=== PATIENT | male | born 1955 | race Caucasian/White ===

== ENCOUNTER 2016-10-14 16:26 | Inpatient (IN) ==
[2016-10-14] MEDS ORDERED: ONDANSETRON 4 MG/2 ML VIAL IV PRN (16:48)
--- NOTE | 2016-10-14 16:49 | Emergency Department Note ---
Arrival - Arrival Chief Complaint: Extremity Injury Stated Complaint: extremity complaints ED Nursing Triage Note: Brought in per EMS from [facility] with c /o left thumb injury onset 10/07/16. Accepted by Dr Toledo. Reports smashed finger on 10/07/16, then fell onto thumb on 10/11/16. After fall attempted to drill finger nail, on 10/12/16 pain became worse. Moderate edema noted to left thumb with drainage. Pain upon movement. Denies fever. Mode of Arrival: Stretcher Time Seen by Provider: 10/14/16 16:47 - History of Present Illness Allergies/Adverse Reactions: Allergies Allergy/AdvReac Type Severity Reaction Status Date / Time codeine Allergy Unknown/Unable Verified 10/14/16 16:44 to obtain Medical,Surgical,& Family Hx - Medical History Cardio: History of: Hypertension Psychological: History of: Depression Neurology: History of: Peripheral Neuropathy Endocrine: History of: Dyslipidemia Musculoskeletal: History of: Back/Neck Problems - Surgical History Orthopedic Surgeries: Surgical HX of;: Orthopedic Surgery (left wrist, leg leg) , Spinal Surgery (neck surgery, back surgery) - Social History Smoking Status: Smoker, status unknown Frequency of Alcohol Use: Frequently Type of Drug Use: None Exam Vital Signs: Vital Signs Temperature 97.8 F 10/14/16 16:26 Pulse Rate 91 H 10/14/16 16:26 Respiratory Rate 20 10/14/16 16:26 Blood Pressure 152/92 10/14/16 16:26 O2 Sat by Pulse Oximetry 98 10/14/16 16:26 Course Course Narrative: ER Doc did not see. Dr Toledo came in to see pt and will take him to surgery Disposition Clinical Impression: Injury of right thumb Case discussed with: patient Disposition: Still a Patient Condition: Stable Time of Disposition: 16:48
--- NOTE | 2016-10-14 17:07 | Orthopedic History & Physical ---
History of Present Illness Chief complaint: Left thumb infection History of present illness: Mr. King is a 61 year old male who was referred to me by Dr. Walls for evaluation of his severe left thumb infection. The patient sustained an injury last Monday where he crushed his finger between a folding table. He then injured it again Monday. Because of severe pain and swelling the patient performed a drill decompression of a subungual hematoma. 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 His thumb progressively worsened until a obviously infected finger this morning. He was seen and evaluated by Dr. Walls. The patient has an insensate left upper extremity left lower extremity secondary to spinal deformity. He is status post a 3 level fusion about 3 years ago. The patient has functional motor use of his left upper extremity. However he has a history of previous krause. To hold or automobile locator, he has to observe his left upper extremity. He has not had any fevers or chills. He also has a history of a radial fracture which was treated with a closed reduction about 40 years ago. Past medical history significant for multiple orthopedic injuries which includes to right hip dislocations, a right patella fracture, 2 left tibia and fibula fractures. He has hyperlipidemia and hypertension, depression and chronic neck and back pain. Medicine list was reviewed. Allergies to codeine 12 point review of systems otherwise negative. The patient is a 10 cigarette per day smoker and gets drunk twice a month. He is on SSI disability. 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 He lives at home with his . Alert and oriented Lungs clear to auscultation Heart regular rate and rhythm Left thumb is severely swollen with drainage underneath his eponychial fold. He has fluctuance on the dorsal surface of his thumb with erythema streaking into the dorsal aspect and slightly palmar aspect of his hand and forearm. The skin on the dorsal surface of his thumb appears tenuous. The patient can flex extend his fingers and is able to weakly flex and extend his thumb IP and MP. Radiographs from [facility] demonstrate a comminuted intra- articular fracture involving the base of his distal phalanx. He shows soft tissue swelling as well. Impression: Left thumb infection. Left intra-articular fracture base of his distal phalanx. Plan: I have advised emergent irrigation and debridement. Will initiate antibiotics after cultures are obtained. I discussed the severity of his infection and potential amputation of his thumb. He is well aware of the severity of his infection. He may require multiple other operations. Risks and benefits were discussed and all questions were answered to his satisfaction. Allergies Allergy/AdvReac Type Severity Reaction Status Date / Time codeine Allergy Unknown/Unable Verified 10/14/16 16:44 to obtain 12 point system: reviewed and no additional remarkable complaints except as stated Medical,Surgical,& Family Hx - Medical History Cardio: History of: Hypertension Psychological: History of: Depression Neurology: History of: Peripheral Neuropathy Endocrine: History of: Dyslipidemia Musculoskeletal: History of: Back/Neck Problems - Surgical History Orthopedic Surgeries: Surgical HX of;: Orthopedic Surgery (left wrist, leg leg) , Spinal Surgery (neck surgery, back surgery) - Social History Smoking Status: Smoker, status unknown Frequency of Alcohol Use: Frequently Type of Drug Use: None Exam - Constitutional Vitals: Period Temp Pulse Resp BP Sys/Burns Pulse Ox Last 24 Hr 97.8 F 91 20 152/92 98
[2016-10-14 17:20] LABS: Basophils # 0.1 10*3/uL (0.0-0.2); Basophils % 0.3 % (0.0-0.8); Eosinophils # 0.1 10*3/uL (0.0-0.87); Eosinophils % 0.4 % (0.00-10.9); Hematocrit 42.2 VOL% (42.0-52.0); Hemoglobin 14.4 GM/DL (14.0-18.0); Immature Granulocytes % 0.6 %; Immature Granulocytes Absolute 0.12 #; Lymphocytes # 2.6 10*3/uL (1.4-4.0); Mean Corpuscular HGB Conc 34.1 GM/DL (32-36); Mean Corpuscular Hemoglobin 33 PG (27-34); Mean Corpuscular Volume 97.5 FL (87-102); Monocytes # 1.8 10*3/uL (0.11-0.8); Monocytes % 9.1 % (1.7-12.7); Neutrophils # 15.1 10*3/uL (1.4-7.4); Neutrophils % 76.6 % (38.7-73.9); Platelet Count 232 T/CUMM (130-400); Red Blood Count 4.33 MC/CUMM (3.8-5.5); Red Cell Distribution Width 13.6 % (9.3-17.3); White Blood Count 19.7 T/CUMM (4-12)
[2016-10-14 17:31] LABS: INR 1.1; PT Patient Result 11.2 SECS; Partial Thromboplastin Time 34.9 SECS (0-40)
[2016-10-14 17:48] LABS: Albumin 3.8 G/DL (3.4-5.0); Bilirubin,Total 0.7 MG/DL (0.2-1.0); Calcium 8.5 MG/DL (8.5-10.1)
[2016-10-14] MEDS ORDERED: METOCLOPRAMIDE 10 MG/2 ML VIAL ONE (18:03)
[2016-10-14] MEDS ORDERED: PROPOFOL 200 MG/20 ML VIAL IV ONE (18:15)
[2016-10-14] MEDS ORDERED: LIDOCAINE 1% 5 ML VIAL ONE (18:15)
[2016-10-14] MEDS ORDERED: ONDANSETRON 4 MG/2 ML VIAL ONE (18:15)
[2016-10-14] MEDS ORDERED: KETOROLAC 30 MG/1 ML VIAL ONE (18:15)
[2016-10-14] MEDS: LACTATED RINGERS 1,000 ML IV SCH ×2 (18:15→21:34)
--- NOTE | 2016-10-14 18:17 | Operative Note ---
Procedure: DIAGNOSIS: Left infected, open intra-articular distal phalanx fracture with associated paronychia, septic DIP arthritis and complex deep abscess dorsal thumb PROCEDURE: Irrigation and debridement left infected open intra-articular distal phalanx fracture, arthrotomy DIP joint and avulsion nail plate SURGEON: Paris ANESTHESIA: Monitored anesthesia care PROCEDURE and FINDINGS: After adequate anesthesia was induced, his left upper extremities prepped and draped in usual sterile fashion. His nail plate was avulsed. A longitudinal incision was made over the dorsal aspect of his thumb. Anaerobic and aerobic cultures were obtained. His nail plate was avulsed. Longitudinal incisions were made on the ulnar radial aspect of his nail fold. The patient had a transverse laceration at the junction of the sterile and germinal matrix. Hypertrophic granulation tissue was excised. There is also a perforation at the the radial proximal portion of his germinal matrix. This extended into the fracture site and DIP joint. And arthrotomy was performed on the medial and lateral aspects of the extensor tendon. Purulent tissue was excised sharply from his DIP joint and fracture site. The wound was copiously irrigated. The wound was loosely approximated with 4-0 nylon. Silvadene was applied. A sterile dressing and thumb spica splint was applied. The patient was transferred to recovery room in stable condition. My plan is to take him Monday for a second look irrigation and debridement. Surgeon / Physician: Juan Toledo Jr. Results - Labs CBC & BMP: 10/14/16 17:13 10/14/16 17:13
[2016-10-14] MEDS ORDERED: KETOROLAC 30 MG/1 ML VIAL IV PRN (18:19)
[2016-10-14] MEDS ORDERED: BUPIVACAINE 0.5% 50 ML VIAL ONE (18:27)
[2016-10-14] MEDS ORDERED: SILVER SULFADIAZINE 1% CREAM 400 GM JAR TOP ONE (18:55)
--- NOTE | 2016-10-14 19:16 | Anesthesia Post-Op ---
Anesthesia Post OP - Post Ansesthetic Evaluation Patient seen in post op: Yes Resp: within normal limits CV: within normal limits Mental: within normal limits Temp: within normal limits [id number]-Lcnctmern: within normal limits Nausea and Vomiting: within normal limits Pain: within normal limits
[2016-10-14] MEDS ORDERED: fentaNYL 100 MCG/2 ML VIAL ONE (19:19)
[2016-10-14] MEDS ORDERED: LACTATED RINGERS 1,000 ML IV ONE (19:19)
[2016-10-14] MEDS ORDERED: MIDAZOLAM 2 MG/2 ML VIAL ONE (19:19)
[2016-10-14] MEDS ORDERED: VANCOMYCIN INJ 1,250 MG in SODIUM CHLORIDE 0.9% 250 ML IV SCH (20:04)
[2016-10-14] MEDS ORDERED: ceFAZolin 1,000 MG VIAL ONE (20:35)
[2016-10-14] MEDS: ceFAZolin 2,000 MG in PREMIX 1 EACH IV SCH (21:31)
[2016-10-14] MEDS: MORPHINE 2 MG/1 ML SYRINGE IV PRN (22:18)
[2016-10-14] MEDS: VANCOMYCIN INJ 1,500 MG in SODIUM CHLORIDE 0.9% 500 ML IV SCH (22:44)
[2016-10-15] MEDS ORDERED: ceFAZolin 2,000 MG in PREMIX 1 EACH IV SCH (00:20)
[2016-10-15] MEDS: MORPHINE 2 MG/1 ML SYRINGE IV PRN ×4 (04:28→23:54)
[2016-10-15 04:29] LABS: Apearance,Urine CLEAR (Clear); Bilirubin,Urine Negative (Negative); Blood, Urine Negative (Negative); Glucose,Urine (UA) Negative (Negative); Ketones,Urine 5 mg/dL (Negative); Mucus,Urine Occasional /LPF (Occasional); Nitrite,Urine Negative (Negative); Protein,Urine 30 MG/DL; RBC,Urine 1 /HPF (0-4); Urine Color Amber (Yellow); Urine Specific Gravity 1.038 (1.001-1.035); WBC,Urine 1 /HPF (0-6)
[2016-10-15] MEDS: ceFAZolin 2,000 MG in PREMIX 1 EACH IV SCH (04:29)
[2016-10-15 04:32] LABS: Bacteria,Urine Moderate /HPF (Few)
[2016-10-15] MEDS: VANCOMYCIN INJ 1,500 MG in SODIUM CHLORIDE 0.9% 500 ML IV SCH ×3 (05:34→23:48)
[2016-10-15 06:59] LABS: Basophils # 0.1 10*3/uL (0.0-0.2); Basophils % 0.4 % (0.0-0.8); Eosinophils # 0.1 10*3/uL (0.0-0.87); Eosinophils % 0.9 % (0.00-10.9); Hematocrit 40.3 VOL% (42.0-52.0); Hemoglobin 13.3 GM/DL (14.0-18.0); Immature Granulocytes % 0.6 %; Immature Granulocytes Absolute 0.09 #; Lymphocytes # 1.8 10*3/uL (1.4-4.0); Lymphocytes % 12.6 % (21.2-54.2); Mean Corpuscular Hemoglobin 32 PG (27-34); Mean Corpuscular Volume 98.1 FL (87-102); Mean Platelet Volume 10.3 FL (9.6-12.0); Monocytes # 1.3 10*3/uL (0.11-0.8); Monocytes % 9.4 % (1.7-12.7); Neutrophils # 10.7 10*3/uL (1.4-7.4); Neutrophils % 76.1 % (38.7-73.9); Platelet Count 212 T/CUMM (130-400); Red Blood Count 4.11 MC/CUMM (3.8-5.5); Red Cell Distribution Width 13.4 % (9.3-17.3); White Blood Count 14.1 T/CUMM (4-12)
[2016-10-15 07:26] LABS: Osmolality,Calculated 283.3 MOS/KG (273-304); Potassium 3.9 MMOL/L (3.5-5.1)
[2016-10-15] MEDS: LACTATED RINGERS 1,000 ML IV SCH ×2 (12:57→19:06)
--- NOTE | 2016-10-15 13:24 | Orthopedic Progress Note ---
Assessment and Plan (1) Injury of thumb, left, superficial, infected Status: Acute Assessment and plan: Continue with splint care and management. Home medications resumed. Continue antibiotics as per Dr. Toledo. Cultures pending. Plan for return to the OR with Dr. Toledo on Monday Current Visit: Yes Orthopedics - Subjective Interval history: Patient seen and examined. Denies complaints. Exam - Constitutional Vitals: Period Temp Pulse Resp BP Sys/Burns Pulse Ox Last 24 Hr 97 F-100.5 F 76-96 16-20 107-161/56-92 94-100 - Extremities Exam Extremities exam: Present: normal inspection (Left upper extremity: Splint intact. Mild drainage at the thumb on the dressing.) Results - Labs CBC & BMP: 10/15/16 06:24 10/15/16 06:24 Lab Results: I have reviewed the past 24 hour labs
[2016-10-15] MEDS: ceFAZolin 2,000 MG in SODIUM CHLORIDE 0.9% 100 ML IV SCH ×2 (14:04→21:03)
[2016-10-15] MEDS: AMITRIPTYLINE 25 MG TABLET PO SCH (20:59)
[2016-10-16] MEDS: MORPHINE 2 MG/1 ML SYRINGE IV PRN ×4 (04:21→20:43)
[2016-10-16] MEDS: ceFAZolin 2,000 MG in SODIUM CHLORIDE 0.9% 100 ML IV SCH ×3 (04:22→20:43)
[2016-10-16] MEDS: LACTATED RINGERS 1,000 ML IV SCH ×2 (05:29→10:11)
[2016-10-16 06:47] LABS: Basophils % 0.3 % (0.0-0.8); Eosinophils # 0.2 10*3/uL (0.0-0.87); Eosinophils % 2.6 % (0.00-10.9); Hematocrit 36.4 VOL% (42.0-52.0); Hemoglobin 11.9 GM/DL (14.0-18.0); Immature Granulocytes % 0.3 %; Immature Granulocytes Absolute 0.03 #; Lymphocytes # 1.6 10*3/uL (1.4-4.0); Lymphocytes % 17.6 % (21.2-54.2); Mean Corpuscular HGB Conc 32.7 GM/DL (32-36); Mean Corpuscular Hemoglobin 32 PG (27-34); Mean Corpuscular Volume 97.3 FL (87-102); Mean Platelet Volume 10.4 FL (9.6-12.0); Monocytes # 1.2 10*3/uL (0.11-0.8); Monocytes % 12.6 % (1.7-12.7); Neutrophils # 6.1 10*3/uL (1.4-7.4); Neutrophils % 66.6 % (38.7-73.9); Platelet Count 223 T/CUMM (130-400); Red Blood Count 3.74 MC/CUMM (3.8-5.5); Red Cell Distribution Width 13.4 % (9.3-17.3); White Blood Count 9.1 T/CUMM (4-12)
[2016-10-16] MEDS: VANCOMYCIN INJ 1,500 MG in SODIUM CHLORIDE 0.9% 500 ML IV SCH ×2 (08:31→16:29)
[2016-10-16] MEDS: ATORVASTATIN 40 MG TABLET PO SCH (08:32)
[2016-10-16] MEDS: LISINOPRIL 20 MG TABLET PO SCH (08:32)
[2016-10-16] MEDS: MAGNESIUM HYDROXIDE SUSP 30 ML UDCUP PO PRN ×2 (08:32→12:20)
[2016-10-16] MEDS: GABAPENTIN 400 MG CAPSULE PO SCH ×2 (08:32→20:42)
[2016-10-16] MEDS: CITALOPRAM 20 MG TABLET PO SCH (08:32)
--- NOTE | 2016-10-16 09:17 | Orthopedic Progress Note ---
Assessment and Plan (1) Injury of thumb, left, superficial, infected Status: Acute Assessment and plan: Continue with splint care and management. Cultures pending. Plan for return to the OR with Dr. Toledo on Monday N.p.o. after midnight Current Visit: Yes Orthopedics - Subjective Interval history: Patient seen and examined. No complaints Exam - Constitutional Vitals: Period Temp Pulse Resp BP Sys/Burns Pulse Ox Last 24 Hr 97.4 F-100.0 F 74-80 15-19 139-158/66-74 98-100 - Extremities Exam Extremities exam: Present: normal inspection (Left arm: Splint intact.) Results - Labs CBC & BMP: 10/16/16 06:18 10/15/16 06:24 Lab Results: I have reviewed the past 24 hour labs
[2016-10-16] MEDS: AMITRIPTYLINE 25 MG TABLET PO SCH (20:42)
[2016-10-17] MEDS: LACTATED RINGERS 1,000 ML IV SCH ×2 (01:30→12:54)
[2016-10-17] MEDS: ceFAZolin 2,000 MG in SODIUM CHLORIDE 0.9% 100 ML IV SCH (04:45)
[2016-10-17] MEDS ORDERED: LORazepam 1 MG TABLET PO ONE (08:03)
[2016-10-17] MEDS ORDERED: PANTOPRAZOLE 40 MG TABLET PO ONE (08:03)
[2016-10-17] MEDS: LISINOPRIL 20 MG TABLET PO SCH (08:25)
[2016-10-17] MEDS: NAFCILLIN 2,000 MG in SODIUM CHLORIDE 0.9% 100 ML IV SCH ×5 (08:31→23:55)
--- NOTE | 2016-10-17 08:49 | Orthopedic Progress Note ---
Orthopedics - Subjective Interval history: Comfortable. The patient feels better overall. Splint is intact with serosanguineous drainage. Capillary refills less than 2 seconds to the tip of his thumb. Cultures are growing MSSA. Plan: Stop vancomycin and ceftezole and start nafcillin. Second look irrigation and debridement today. All questions answered. Exam - Constitutional Vitals: Period Temp Pulse Resp BP Sys/Burns Pulse Ox Last 24 Hr 97.6 F-99.4 F 73-84 16-22 124-158/71-93 93-97 Results - Labs CBC & BMP: 10/16/16 06:18 10/15/16 06:24
[2016-10-17] MEDS ORDERED: BUPIVACAINE 0.5% 50 ML VIAL ONE (09:36)
[2016-10-17] MEDS ORDERED: PROPOFOL 200 MG/20 ML VIAL IV ONE (09:43)
--- NOTE | 2016-10-17 10:36 | Operative Note ---
Procedure: DIAGNOSIS: Left infected, open intra-articular distal phalanx fracture with associated paronychia, septic DIP arthritis and complex deep abscess dorsal thumb PROCEDURE: Irrigation and debridement left infected open intra-articular distal phalanx fracture SURGEON: Paris ANESTHESIA: Monitored anesthesia care PROCEDURE and FINDINGS: After adequate anesthesia was induced, his left upper extremities prepped and draped in usual sterile fashion. The 4-0 nylon sutures were removed. There was less purulence and erythema but the thumb was still very swollen. the insertion of his extensor tendon was necrotic and was easily avulsed. The distal portion of his extensor tendon was excised. The superficial and deep epidermal tissue were delaminating with purulence between the layers. Most of the superficial epidermal layer was removed from the thumb exposing viable skin underneath. The patient had developed a sinus tract on the ulnar aspect of his thumb. The sinus tract was widened and curetted. The track extended to his DIP joint and distal phalanx. The wound was copiously irrigated. The dorsal wound was loosely approximated with 4-0 nylon. Silvadene was applied. A sterile dressing and thumb spica splint was applied. The patient was transferred to recovery room in stable condition. My plan is to take him to surgery Monday for a third look irrigation and debridement. Surgeon / Physician: Juan Toledo Jr. Results - Labs CBC & BMP: 10/16/16 06:18 10/15/16 06:24 Discharge Plan - Discharge Medications No Action Atorvastatin [Lipitor] 40 mg PO DAILY Citalopram [CeleXA] 20 mg PO DAILY Aspirin EC Tab 325 mg PO DAILY Lisinopril 20 mg PO DAILY Gabapentin 800 mg PO Q6-8H Amitriptyline [Elavil] 75 mg PO BEDTIME Ibuprofen 200 mg PO BID PRN PRN Reason: Pain - Follow Up or Referral - Forms/Instructions
--- NOTE | 2016-10-17 10:41 | Anesthesia Post-Op ---
Anesthesia Post OP - Post Ansesthetic Evaluation Patient seen in post op: Yes Resp: within normal limits CV: within normal limits Mental: within normal limits Temp: within normal limits [id number]-Nb-Qmndngmrc: within normal limits Nausea and Vomiting: within normal limits Pain: within normal limits
[2016-10-17] MEDS ORDERED: MIDAZOLAM 2 MG/2 ML VIAL ONE (10:45)
[2016-10-17] MEDS: ATORVASTATIN 40 MG TABLET PO SCH (12:55)
[2016-10-17] MEDS: CITALOPRAM 20 MG TABLET PO SCH (12:55)
[2016-10-17] MEDS: MORPHINE 2 MG/1 ML SYRINGE IV PRN ×3 (13:05→21:23)
--- NOTE | 2016-10-17 14:34 | Infectious Disease Consult ---
Assessment and Plan (1) Injury of thumb, left, superficial, infected Status: Acute Assessment and plan: This is a complicated infection which includes abscess to the thumb and also septic arthritis to the distal interphalangeal joint of the thumb. Infection is due to MSSA. The leukocytosis yet on admission has resolved. He has also been afebrile for about 72 hours. Recommendations: 1. Blood cultures 2 sets of completeness sake 2. Agree with switch to nafcillin 3. Aggressive wound care; he is going for repeat I&D in 2 days 4. Once his blood cultures are negative he showed be able to go home on oral antibiotic therapy to complete 6 weeks total including what he had in hospital Thank you very much for the consult. Will follow. Current Visit: Yes History of Present Illness Chief complaint: Infected left thumb with associated fracture History of present illness: Mr. 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 He was working at home and sustained trauma to the left thumb after something fell on it. 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 The next day the thumb was swollen and a bit red. The swelling and redness got progressively worse and so on Monday the patient decided to seek medical care. He was found to have quite a severe infection of the left thumb and also a fracture of the proximal aspect of the distal phalanx intra- articularly. He was taken for I&D. Cultures came back positive for MSSA. He had second I&D again today. He says overall he feels significantly better. Prior to admission he was having fever chills and generalized malaise but today says he feels much better; he started feeling better yesterday. Home Medications Medication Instructions Recorded Confirmed Type Amitriptyline [Elavil] 75 mg PO BEDTIME 10/15/16 10/15/16 History Aspirin EC Tab 325 mg PO DAILY 10/15/16 10/15/16 History Atorvastatin [Lipitor] 40 mg PO DAILY 10/15/16 10/15/16 History Citalopram [CeleXA] 20 mg PO DAILY 10/15/16 10/15/16 History Gabapentin 800 mg PO Q6-8H 10/15/16 10/15/16 History Ibuprofen 200 mg PO BID PRN 10/15/16 10/15/16 History Lisinopril 20 mg PO DAILY 10/15/16 10/15/16 History Allergies Allergy/AdvReac Type Severity Reaction Status Date / Time codeine Allergy Unknown/Unable Verified 10/14/16 16:44 to obtain 12 point system: reviewed and no additional remarkable complaints except as stated (Per HPI) Medical,Surgical,& Family Hx - Medical History Cardio: History of: Hypertension Psychological: History of: Behavior Problems (Anger management), Depression Neurology: History of: Peripheral Neuropathy HEENT: History of: Eye Problem (Wear glasses) Endocrine: History of: Dyslipidemia Rheumatology: History of;: Rheumatoid Arthritis Musculoskeletal: History of: Back/Neck Problems - Surgical History Orthopedic Surgeries: Surgical HX of;: Orthopedic Surgery (left wrist, leg leg) , Spinal Surgery (neck surgery, back surgery) - Social History Smoking Status: Current every day smoker Frequency of Alcohol Use: Frequently Type of Drug Use: None Infectious Disease Exam H&P - Constitutional Vitals: Vital Signs Temp Pulse Resp BP Pulse Ox 98.1 F 81 20 150/90 98 10/17/16 11:20 10/17/16 12:20 10/17/16 12:20 10/17/16 12:20 10/17/16 12:20 Intake and Output 10/16/16 10/17/16 10/17/16 23:59 07:59 15:59 Intake Total 1200 / 1200 100 / 100 340 / 340 Output Total 403 / 403 Balance 1200 / 1200 99 / 99 -63 / -63 Intake: IV 1200 / 1200 100 / 100 100 / 100 Lr 1,000 ml @ 100 mls/hr 1000 / 1000 IV .Q10H LONG Rx#: [id number] Nafcillin 2,000 mg In Ns 100 / 100 100 ml @ 100 mls/hr IV Q4H LONG Rx#:[id number] Ancef 2,000 mg In Ns 100 200 / 200 100 / 100 ml @ 100 mls/hr IV Q8H LONG Rx#:[id number] Oral 0 / 0 240 / 240 Output: Urine 403 / 403 Other: Voiding Method Toilet # Voids 3 # Bowel Movements 1 Exam: General: Patient relatively comfortable HEENT: Mucous membranes pink and moist, anicteric acyanotic, GWEN, no oropharyngeal exudates but very poor dentition Neck: Supple, no thyroid gland enlargement, no lymphadenopathy Respiratory system: Breath sounds vesicular, no crepitations or wheezes Cardiovascular: Normal S1 and S2, no murmurs appreciated Abdomen: Normal bowel sounds, soft nontender throughout, no organomegaly or mass Genitourinary: No suprapubic pain or bladder distention Extremities: Left hand and forearm bandage, no ipsilateral epitrochlear lymphadenopathy, no edema of legs Skin: No rash but he has scars to proximal left forearm from old krause and bruises related to the patient's decreased sensation Reports - Labs CBC & BMP: 10/16/16 06:18 10/15/16 06:24 - Reports Microbiology: Microbiology 10/14/16 19:15 Abscess Culture - Final Hand - Left Staphylococcus aureus Anaerobic Culture - Final No anaerobe isolated
--- NOTE | 2016-10-17 16:34 | EKG Report ---
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
[2016-10-17] MEDS: AMITRIPTYLINE 25 MG TABLET PO SCH (21:23)
[2016-10-18] MEDS: NAFCILLIN 2,000 MG in SODIUM CHLORIDE 0.9% 100 ML IV SCH ×5 (04:07→20:10)
--- NOTE | 2016-10-18 07:19 | Orthopedic Progress Note ---
Orthopedics - Subjective Interval history: Mr. King states that he feels significantly better. Left upper extremity shows thumb capillary refill less than 2 seconds. Splint is intact with some drainage distally. Plan: Plan third look irrigation and debridement tomorrow. Continue nafcillin. Appreciate Dr. Graf's help. Exam - Constitutional Vitals: Period Temp Pulse Resp BP Sys/Burns Pulse Ox Last 24 Hr 97.0 F-98.3 F 62-81 16-20 107-164/66-94 94-100 Results - Labs CBC & BMP: 10/16/16 06:18 10/15/16 06:24
--- NOTE | 2016-10-18 09:24 | Infectious Disease Progress ---
Assessment and Plan (1) Injury of thumb, left, superficial, infected Status: Acute Assessment and plan: This is a complicated infection which includes abscess to the thumb and also septic arthritis to the distal interphalangeal joint of the thumb. Infection is due to MSSA. The leukocytosis and fever have resolved. Recommendations: 1. Follow-up results of blood cultures 2. Continue nafcillin 3. He is having repeat debridement tomorrow Current Visit: Yes Infectious Disease - PN: Subj Interval history: Patient doing well, he says he feels so much better overall. He has been afebrile. Tolerating the nafcillin without nausea vomiting or diarrhea. Infectious Disease Exam (PN) - Constitutional Vitals: Temp Pulse Resp BP Pulse Ox 97.4 F L 75 18 155/88 98 10/18/16 07:13 10/18/16 07:13 10/18/16 07:13 10/18/16 07:13 10/18/16 07:13 Exam: General appearance: no acute distress - Eye Eye exam: Present: EOMI. no icterus Pupils: Present: GWEN - ENT ENT exam: no oropharyhgeal exudates - Respiratory Respiratory exam: vesicular BS, no crepitations or wheezes - Cardiovascular Cardiovascular exam: regular rate and rhythm, no murmurs - GI/Abdominal GI/Abdominal exam: normal bowel sounds, soft, non-tender, no organomegaly or mass - Extremities Exam Extremities exam: Left forearm and hand bandaged - Skin Skin exam: no rash Results - Labs CBC & BMP: 10/16/16 06:18 10/15/16 06:24 Lab Results: I have reviewed the past 24 hour labs
[2016-10-18] MEDS: ATORVASTATIN 40 MG TABLET PO SCH (09:30)
[2016-10-18] MEDS: CITALOPRAM 20 MG TABLET PO SCH (09:30)
[2016-10-18] MEDS: LISINOPRIL 20 MG TABLET PO SCH (09:30)
[2016-10-18] MEDS: MORPHINE 2 MG/1 ML SYRINGE IV PRN ×2 (09:37→22:55)
[2016-10-18] MEDS: AMITRIPTYLINE 25 MG TABLET PO SCH (20:11)
[2016-10-19] MEDS: LACTATED RINGERS 1,000 ML IV SCH ×2 (00:29→15:31)
[2016-10-19] MEDS: NAFCILLIN 2,000 MG in SODIUM CHLORIDE 0.9% 100 ML IV SCH ×6 (00:30→20:52)
[2016-10-19 06:34] LABS: Basophils % 0.5 % (0.0-0.8); Eosinophils # 0.4 10*3/uL (0.0-0.87); Hematocrit 38.5 VOL% (42.0-52.0); Hemoglobin 12.6 GM/DL (14.0-18.0); Immature Granulocytes % 0.5 %; Immature Granulocytes Absolute 0.03 #; Lymphocytes # 1.8 10*3/uL (1.4-4.0); Lymphocytes % 28.1 % (21.2-54.2); Mean Corpuscular HGB Conc 32.7 GM/DL (32-36); Mean Corpuscular Hemoglobin 32 PG (27-34); Mean Corpuscular Volume 96.5 FL (87-102); Mean Platelet Volume 9.7 FL (9.6-12.0); Monocytes # 0.6 10*3/uL (0.11-0.8); Monocytes % 9.8 % (1.7-12.7); Neutrophils # 3.5 10*3/uL (1.4-7.4); Neutrophils % 55.1 % (38.7-73.9); Platelet Count 299 T/CUMM (130-400); Red Blood Count 3.99 MC/CUMM (3.8-5.5); Red Cell Distribution Width 13.2 % (9.3-17.3); White Blood Count 6.3 T/CUMM (4-12)
[2016-10-19] MEDS ORDERED: PROPOFOL 200 MG/20 ML VIAL IV ONE (07:00)
[2016-10-19] MEDS ORDERED: LIDOCAINE 1% 5 ML VIAL ONE (07:00)
[2016-10-19] MEDS ORDERED: KETOROLAC 30 MG/1 ML VIAL ONE (07:00)
[2016-10-19] MEDS ORDERED: ONDANSETRON 4 MG/2 ML VIAL ONE (07:00)
[2016-10-19 07:10] LABS: Calcium 8.8 MG/DL (8.5-10.1); Osmolality,Calculated 286.7 MOS/KG (273-304); Potassium 4.1 MMOL/L (3.5-5.1)
[2016-10-19] MEDS ORDERED: BACITRACIN OINT 0.9 GM PACK TOP ONE (07:45)
--- NOTE | 2016-10-19 08:16 | Operative Note ---
Date of procedure: 10/19/16 Procedure: DIAGNOSIS: Left infected, open intra-articular distal phalanx fracture with associated paronychia, septic DIP arthritis and complex deep abscess dorsal thumb PROCEDURE: Irrigation and debridement left infected open intra-articular distal phalanx fracture. Repair nailbed. Delayed primary closure simple approximately 6 cm. Open treatment left intra-articular distal phalanx fracture. SURGEON: [place] ANESTHESIA: Monitored anesthesia care PROCEDURE and FINDINGS: After adequate anesthesia was induced, his left upper extremities prepped and draped in usual sterile fashion. The 4-0 nylon sutures were removed. The thumb was still very swollen but with significantly less erythema and no purulence. The distal portion of his extensor tendon was excised again. his thumb. The sinus tract which was located ulnarly was widened and curetted. The track extended to his DIP joint and distal phalanx. The wound and DIP joint was copiously irrigated. The dorsal wound was loosely approximated with 4-0 and 3-0 nylon, closing the dorsal incision over the extensor tendon. The distal portion was left open to pack. . The nailbed was repaired with 5-0 chromic simple suture. The DIP joint and sinus tract were packed with iodoform gauze. Bacitracin was applied. A sterile dressing and thumb spica splint was applied. The patient was transferred to recovery room in stable condition. My plan is to start dressing changes tomorrow. Surgeon / Physician: Juan Toledo Jr. Results - Labs CBC & BMP: 10/19/16 06:01 10/19/16 06:01 Discharge Plan - Discharge Medications No Action Atorvastatin [Lipitor] 40 mg PO DAILY Citalopram [CeleXA] 20 mg PO DAILY Aspirin EC Tab 325 mg PO DAILY Lisinopril 20 mg PO DAILY Gabapentin 800 mg PO Q6-8H Amitriptyline [Elavil] 75 mg PO BEDTIME Ibuprofen 200 mg PO BID PRN PRN Reason: Pain - Follow Up or Referral - Forms/Instructions
--- NOTE | 2016-10-19 08:19 | Anesthesia Post-Op ---
Anesthesia Post OP - Post Ansesthetic Evaluation Patient seen in post op: Yes Resp: within normal limits CV: within normal limits Mental: within normal limits Temp: within normal limits Kmvn-Ss-Bwzzrguqw: within normal limits Nausea and Vomiting: within normal limits Pain: within normal limits
[2016-10-19] MEDS ORDERED: MIDAZOLAM 2 MG/2 ML VIAL ONE (08:20)
[2016-10-19] MEDS ORDERED: fentaNYL 100 MCG/2 ML VIAL ONE (08:21)
[2016-10-19] MEDS: CITALOPRAM 20 MG TABLET PO SCH (09:19)
[2016-10-19] MEDS: LISINOPRIL 20 MG TABLET PO SCH (09:19)
[2016-10-19] MEDS: ATORVASTATIN 40 MG TABLET PO SCH (09:19)
--- NOTE | 2016-10-19 10:32 | Infectious Disease Progress ---
Assessment and Plan (1) Injury of thumb, left, superficial, infected Status: Acute Assessment and plan: This is a complicated infection which includes abscess to the thumb and also septic arthritis to the distal interphalangeal joint of the thumb. Infection is due to MSSA. He has had repeat debridement and the leukocytosis and fever have resolved. Blood cultures negative so far. Recommendations: 1. Follow-up results of blood cultures 2. Continue nafcillin 3. He should be able to go home by the end of this week on Augmentin once his blood cultures are not positive Current Visit: Yes Infectious Disease - PN: Subj Interval history: Patient is doing well, he had repeat debridement of his left thumb wound today and delayed closure of the wound. No fever. No nausea vomiting or diarrhea on antibiotic. Infectious Disease Exam (PN) - Constitutional Vitals: Temp Pulse Resp BP Pulse Ox 98.0 F 66 16 124/78 96 10/19/16 08:50 10/19/16 08:50 10/19/16 08:50 10/19/16 08:50 10/19/16 08:50 Exam: General appearance: no acute distress - Eye Eye exam: Present: EOMI. no icterus Pupils: Present: GWEN - ENT ENT exam: no oral exudates - Respiratory Respiratory exam: vesicular BS, no crepitations or wheezes - Cardiovascular Cardiovascular exam: regular rate and rhythm, no murmurs - GI/Abdominal GI/Abdominal exam: normal bowel sounds, soft, non-tender, no organomegaly or mass - Extremities Exam Extremities exam: Left forearm and hand bandaged - Skin Skin exam: no rash Results - Labs CBC & BMP: 10/19/16 06:01 10/19/16 06:01 Lab Results: I have reviewed the past 24 hour labs
--- NOTE | 2016-10-19 13:28 | Operative Note ---
Date of procedure: 10/19/16 Surgeon / Physician: Juan Toledo Jr. Results - Labs CBC & BMP: 10/19/16 06:01 10/19/16 06:01 Discharge Plan - Discharge Medications No Action Atorvastatin [Lipitor] 40 mg PO DAILY Citalopram [CeleXA] 20 mg PO DAILY Aspirin EC Tab 325 mg PO DAILY Lisinopril 20 mg PO DAILY Gabapentin 800 mg PO Q6-8H Amitriptyline [Elavil] 75 mg PO BEDTIME Ibuprofen 200 mg PO BID PRN PRN Reason: Pain - Follow Up or Referral - Forms/Instructions
[2016-10-19] MEDS: AMITRIPTYLINE 25 MG TABLET PO SCH (20:51)
[2016-10-19] MEDS: MORPHINE 2 MG/1 ML SYRINGE IV PRN (20:51)
[2016-10-20] MEDS: NAFCILLIN 2,000 MG in SODIUM CHLORIDE 0.9% 100 ML IV SCH ×6 (00:56→21:26)
[2016-10-20] MEDS: MORPHINE 2 MG/1 ML SYRINGE IV PRN (02:35)
--- NOTE | 2016-10-20 07:38 | Orthopedic Progress Note ---
Orthopedics - Subjective Interval history: Mr. King is comfortable today. Dressing and splint taken down. Erythema has improved. Thumb remains quite swollen. Plan: Start iodoform dressing changes. Occupational therapy to make a removable forearm-based thumb spica splint to include his distal phalanx. Continue nafcillin. Plan discharge home. I have discussed at length with the patient that we are going to continue with antibiotic treatment given the importance of the thumb to function of the hand. However, if he fails to resolve the infection, we may need to consider amputation. I plan to discharge him home tomorrow. Exam - Constitutional Vitals: Period Temp Pulse Resp BP Sys/Burns Pulse Ox Last 24 Hr 97.0 F-98.2 F 62-82 12-20 106-156/58-84 94-97 Results - Labs CBC & BMP: 10/19/16 06:01 10/19/16 06:01
[2016-10-20] MEDS: CITALOPRAM 20 MG TABLET PO SCH (08:49)
[2016-10-20] MEDS: LISINOPRIL 20 MG TABLET PO SCH (08:49)
[2016-10-20] MEDS: ATORVASTATIN 40 MG TABLET PO SCH (08:49)
--- NOTE | 2016-10-20 09:53 | Event Note ---
No complaints, afebrile, tolerating antibiotics. Made good tomorrow and I will switch him to Augmentin at that time.
--- NOTE | 2016-10-20 16:39 | Discharge Summary ---
Hospital Course - Hospital Course Hospital Course: Monster King was admitted with a severe deep left thumb infection secondary to a neglected open distal phalanx fracture. He underwent emergent irrigation debridement, arthrotomy of his distal phalanx and avulsion of his nail plate. He was started on Ancef and vancomycin. Intraoperative cultures grew M SSA and he was switched to nafcillin. Dr. Graf and infectious disease was consulted. The patient underwent to other irrigation and debridements with a ventral repair of his nail bed and delayed primary closure. The infectious process resulted in the avulsion of his extensor tendon. Distal portion of his extensor tendon was excised because of necrosis. The patient was started on iodoform dressing changes and a thumb spica splint was made form by occupational therapy. The patient was discharged home tentatively on Augmentin. I have discussed that we are going to give him a trial of antibiotic treatment to help preserve length of his thumb. I have discussed with Mr. King that if he fails treatment that he may require a thumb amputation. Discharge Plan - Discharge Data Disposition: Home Health Service Condition at Discharge: Stable Discharge Diet: advance to your usual diet Hygiene: keep area(s) dry - Discharge Medications Continue Atorvastatin [Lipitor] 40 mg PO DAILY Citalopram [CeleXA] 20 mg PO DAILY Aspirin EC Tab 325 mg PO DAILY Lisinopril 20 mg PO DAILY Gabapentin 800 mg PO Q6-8H Amitriptyline [Elavil] 75 mg PO BEDTIME Ibuprofen 200 mg PO BID PRN PRN Reason: Pain - Follow Up or Referral - Forms/Instructions Additional Discharge Instructions: Twice daily iodoform dressing changes. Take antibiotics per Dr. Graf's instructions. Follow-up appointment Monday or Monday of next week. Prescription for [place] 5 was written. Wear thumb spica splint. Remove only for dressing changes. Set up home health for dressing changes. Exam - Constitutional Vitals: Period Temp Pulse Resp BP Sys/Burns Pulse Ox Last 24 Hr 97.5 F-98.5 F 61-80 12-20 132-151/67-99 96-97 Discharge Results Procedures and tests throughout hospitalization: Pending Orders 10/17/16 14:57 Blood Culture Stat Labs on day of discharge: Preliminary micro results at discharge 10/17/16 14:57 Blood Culture - Preliminary Blood No growth at 3 days 10/17/16 14:57 Blood Culture - Preliminary Blood No growth at 3 days DS: Provider Date of admission: 10/14/16 16:47 Primary care physician: . No PCP Attending physician on admission: Juan Toledo Jr., Consults: 10/14/16 16:48 Consult to Anesthesiology [CONS] Routine Consulting Provider: Reason for Anesthesiology: Pre-op Clearance 10/14/16 20:04 Consult to Pharmacy [CONS] Routine Reason for Pharmacy Consult: Dose/Manage Vancomycin 10/14/16 20:30 Consult to Pastoral Services [CONS] Routine Comment: Pastoral Screen: Request Process Specialist Visit Pastoral Screen Source of Request: Patient 10/17/16 10:52 Consult to Physician [CONS] Routine Comment: neglected left thumb open fx, MSSA infection. Consulting Provider: Candace Graf Consulting Provider Notified: Yes When should Consulting Provider be notified: Now Person Notified: chris johnny Date Notified: 10/17/16 Time Notified: 12:38 10/20/16 06:19 Consult to Occupational Therapy [CONS] Routine Reason for Occupational Therapy: Splint Consult Comment: molded removable thumb spica splint. include distal phalanx Discharging clinician: Juan Toledo Jr., Expected date of discharge: 10/21/16
[2016-10-20] MEDS: AMITRIPTYLINE 25 MG TABLET PO SCH (21:25)
[2016-10-21] MEDS: NAFCILLIN 2,000 MG in SODIUM CHLORIDE 0.9% 100 ML IV SCH ×4 (01:02→12:05)
[2016-10-21] MEDS: ATORVASTATIN 40 MG TABLET PO SCH (08:55)
[2016-10-21] MEDS: CITALOPRAM 20 MG TABLET PO SCH (08:55)
[2016-10-21] MEDS: LISINOPRIL 20 MG TABLET PO SCH (08:55)
[2016-10-21 11:26] VITALS: BP 148/76
--- NOTE | 2016-10-21 12:31 | Event Note ---
Patient doing well, is ready to go home today. I have provided a prescription for Augmentin 875 mg twice daily and he will get that for about 6 weeks. He will follow with Dr. Toledo on discharge. He knows that there is a strong possibility of him losing his thumb finger.
== END 2016-10-21 12:35 | disposition home health service (06) | DRG 316 ==
LOC: EDBD → EDUNIT# → N.ED 16:26 → N.EDINP 16:47 → N.3E 20:06
PROVIDERS: ADMIT Orthopaedic Surgery; ATTEND Orthopaedic Surgery